=== PATIENT | female | born 1995 | race Two or more races ===

== ENCOUNTER → 2020-06-22 | Outpatient (REF) | payer BC | LOC: M SFHCWAGY 17:04 | PROVIDERS: ATTEND Nurse Practitioner Women's Health | DX: Z12.4 Encounter for screening for malignant neoplasm of cervix (principal) ==

== ENCOUNTER → 2020-07-21 | Outpatient (CLI) | payer SELFPAY | LOC: M LABSMTC 12:49 | PROVIDERS: ATTEND Pediatrics | DX: Z20.822 Contact with and (suspected) exposure to COVID-19 (principal) ==

== ENCOUNTER → 2023-01-07 | Outpatient (REF) | payer BC | LOC: M SFHCWAGY 12:12 | PROVIDERS: ATTEND Nurse Practitioner Family | DX: Z12.4 Encounter for screening for malignant neoplasm of cervix (principal) | CPT/HCPCS: 87624; G0123 ==

== ENCOUNTER → 2023-07-17 | Outpatient (CLI) | payer BC ==
[~2023-07-17] MED LIST: ENOX40IN3 SQ; LISI10TA22 PO; PERI12LIQ SS; SIMV20TA22 PO
[2023-07-17 16:44] LABS: HCG, SERUM QUALITATIVE NEGATIVE (NEGATIVE)
== END ==
LOC: M ONCR 14:43
PROVIDERS: ATTEND General Practice
DX: C02.1 Malignant neoplasm of border of tongue (principal); Z79.899 Other long term (current) drug therapy; Z87.891 Personal history of nicotine dependence
CPT/HCPCS: 36415; 84703; G0463

== ENCOUNTER 2023-07-23 10:17 | Outpatient (RCR) | payer BC | END 2023-08-02 | LOC: M ONCR 10:17 | PROVIDERS: ATTEND General Practice | DX: Z51.0 Encounter for antineoplastic radiation therapy (principal); C02.1 Malignant neoplasm of border of tongue ==

== ENCOUNTER 2023-08-30 08:09 | Outpatient (RCR) | payer BC | END 2023-09-01 | LOC: M ONCR 08:09 | PROVIDERS: ATTEND General Practice | DX: Z51.0 Encounter for antineoplastic radiation therapy (principal); C02.1 Malignant neoplasm of border of tongue ==

== ENCOUNTER 2023-09-17 08:11 | Outpatient (RCR) | payer BC | END 2023-10-02 | LOC: M ONCR 08:11 | PROVIDERS: ATTEND General Practice | DX: Z51.0 Encounter for antineoplastic radiation therapy (principal); C02.1 Malignant neoplasm of border of tongue ==

== ENCOUNTER → 2023-10-01 | Outpatient (CLI) | payer BC | LOC: M ONCR 08:18 | PROVIDERS: ATTEND General Practice | DX: K12.33 Oral mucositis (ulcerative) due to radiation (principal); Z92.3 Personal history of irradiation ==

== ENCOUNTER → 2023-12-18 | Outpatient (CLI) | payer BC | LOC: M ONCR 08:22 | PROVIDERS: ATTEND General Practice | DX: C02.1 Malignant neoplasm of border of tongue (principal); Z92.3 Personal history of irradiation; Z87.891 Personal history of nicotine dependence; Z79.899 Other long term (current) drug therapy ==

== ENCOUNTER → 2024-03-26 | Outpatient (CLI) | payer BC, OTHER, SELFPAY ==
[2024-03-26 09:22] LABS: FREE T4 1.04 NG/DL (0.89-1.76); THYROID STIMULATING HORMONE 3.489 uIU/ML (0.55-4.78)
[2024-03-26 09:24] LABS: FREE T3 3.2 PG/ML (2.3-4.2)
== END ==
LOC: M ONCR 07:50
PROVIDERS: ATTEND General Practice
DX: C02.1 Malignant neoplasm of border of tongue (principal); Z92.3 Personal history of irradiation; F17.210 Nicotine dependence, cigarettes, uncomplicated; Z79.899 Other long term (current) drug therapy
CPT/HCPCS: 36415; 84439; 84443; 84481; G0463

== ENCOUNTER → 2024-08-31 | Outpatient (CLI) | payer OTHER | LOC: M ONCR 08:22 | PROVIDERS: ATTEND General Practice | DX: Z08 Encounter for follow-up examination after completed treatment for malignant neoplasm (principal); Z85.810 Personal history of malignant neoplasm of tongue; Z79.899 Other long term (current) drug therapy; Z87.891 Personal history of nicotine dependence; Z90.49 Acquired absence of other specified parts of digestive tract; Z92.3 Personal history of irradiation ==